=== PATIENT | female | born 1960 | race Caucasian/White ===

== ENCOUNTER 2018-03-15 01:31 | Outpatient (CLI) | payer OTHER, SELFPAY ==
[2018-03-15 11:40] LABS: Cholesterol 198 mg/dL (50-200); Glucose 89 mg/dL (70-100); HDL Cholesterol 96 mg/dL (40-60); LDL CHOLESTEROL 96 mg/dL (<100); Triglyceride 47 mg/dL (30-150)
== END 2018-03-15 01:51 ==
PROVIDERS: PCP Emergency Medicine; Visit Provider Emergency Medicine
DX: Z13.1 Encounter for screening for diabetes mellitus (principal); Z13.220 Encounter for screening for lipoid disorders
CPT/HCPCS: 36415; 80061; 82947; 83721

== ENCOUNTER 2018-11-22 09:51 | Outpatient (CLI) | payer OTHER, SELFPAY ==
[2018-11-23 10:29] LABS: Hepatitis C Ab w Rflx HCV PCR Negative (NEGAT)
[2018-11-23 10:42] LABS: HIV-1/2 Ag & Ab Screen Negative (NEGAT)
[2018-11-23 10:57] LABS: Syphilis Serology (RPR) Negative (Negative)
== END 2018-11-22 10:11 ==
PROVIDERS: PCP Emergency Medicine; Visit Provider Emergency Medicine
DX: Z00.00 Encounter for general adult medical examination without abnormal findings (principal); Z11.4 Encounter for screening for human immunodeficiency virus [HIV]; Z11.59 Encounter for screening for other viral diseases
CPT/HCPCS: 36415; 86803; 87389; 86592

== ENCOUNTER 2018-11-22 10:31 | Outpatient (REF) | payer OTHER, SELFPAY ==
[2018-11-23 14:18] LABS: Chlamydia Result Negative; GC Result Negative; Specimen Description VAGINAL
== END 2018-11-22 10:51 ==
LOC: LBN 10:31
PROVIDERS: PCP Emergency Medicine; Visit Provider Emergency Medicine
DX: Z20.2 Contact with and (suspected) exposure to infections with a predominantly sexual mode of transmission (principal); Z11.3 Encounter for screening for infections with a predominantly sexual mode of transmission
CPT/HCPCS: 87491; 87591

== ENCOUNTER 2019-12-20 02:58 | Outpatient (CLI) | payer OTHER, SELFPAY ==
--- NOTE | 2019-12-20 07:15 | DI.MAMMO_ITS ---
EXAM: MG MAMMO SCREENING CLINICAL HISTORY: screening,Z12.39 TECHNIQUE: Bilateral full field digital CC and MLO mammographic images were obtained with 3D tomosyn thesis and utilizing computer aided detection (CAD). COMPARISON: Available for comparison. FINDINGS: Masses/Architectural Distortion: None seen. Microcalcifications: No suspicious pleomorphic-type are seen. Skin Thickening/Nipple Retraction: None. IMPRESSION: 1. No significant interval change with no specific features of malignancy noted. 2. Unless there is more urgent need, screening mammography is recommended, as per [employer] guidelines. BI-RADS Category 1 - Negative Breast Density - Category C - Heterogeneously dense The mammogram demonstrates the patient's breast tissue is dense. Dense breast tissue is very common a nd is not abnormal but dense breast tissue can make it harder to find cancer on a mammogram. Also, de nse breast tissue may increase their breast cancer risk. This information about the result of [place] [facility] [place] was provided to the patient to raise their awareness. Use this report when you speak wi th the patient about their risks for breast cancer, which includes their family history. At that time , you may recommend for more screening tests (Ultrasound or MRI) as they might be useful based on the ir risk. A negative radiographic report should not delay biopsy if a dominant or clinically suspicious mass is present. Up to ten percent of cancers are not identified on mammography. A negative report may reinforce clinical impression. Adenosis and dense breasts may obscure an underlying neoplasm. False positive reports average 6 to 10%. Patient will receive a letter notifying them of these results.
== END 2019-12-20 03:18 ==
PROVIDERS: PCP Emergency Medicine; Visit Provider Emergency Medicine
DX: Z12.31 Encounter for screening mammogram for malignant neoplasm of breast (principal)
CPT/HCPCS: 77063; 77067

== ENCOUNTER 2020-01-10 15:20 | Outpatient (REF) | payer OTHER, SELFPAY ==
[2020-01-18 10:20] LABS: SARS-CoV-2 RNA Undetected (Undetected); SARS-CoV-2 Specimen Source Nasopharynx
== END 2020-01-10 15:40 ==
LOC: NCHCN 15:20
PROVIDERS: PCP Emergency Medicine; Visit Provider Family Medicine
DX: Z20.828 Contact with and (suspected) exposure to other viral communicable diseases (principal)
CPT/HCPCS: U0003

== ENCOUNTER 2020-01-21 06:20 | Day surgery (SDC) | payer OTHER, SELFPAY ==
[2020-01-21 06:13] VITALS: BP 116/80; PULSE 65; RESP 16; TEMP 36.3; O2SAT 98
--- NOTE | 2020-01-21 06:39 | W.COLOREPORT ---
Date of service: 01/21/20 Time of Service: :30 Colonoscopy Report Date of procedure: 01/21/20 Pre-op diagnosis general: Colon Cancer Screening Post-op diagnosis procedure note: same Procedure: Colonoscopy Surgeon: Anca Mcgraw Anesthesia proc note operative: other (General/ ASA 2/ Madelaine Peña, BRIAN) Estimated blood loss (mL): 0 Pathology: none sent Complications: None Disposition: same day Indications: Healthy 59 year old female here for a screening colonoscopy Risks, benefits and complications have been reveiwd. Complications include but are not limited to bleeding, pain, infection, perforation, sore throat, aspiration and adverse reaction to the medications. Questions were entertained and answered to her satisfcation and she wished to proceed. No guarantees were given or implied. Prep: Miralax/Dulcolax Procedure Start Time: :30 Procedure End Time: :50 Retraction Time: 13 minutes Findings: Normal colon Procedure Description: After informed consent was obtained the patient was taken to the procedure room and placed in a left decubitous position. Monitors were applied and a time out was done. The patients name, date of , procedure, allergies to medications and metal in their body was reviewed. The patient was then sedated. Once sedated and comfortable a rectal exam was done. External exam was normal. Internal exam revealed a normal sphincter tone and no palpable masses. The scope was then introduced and retro-flexed. No internal hemorrhoids, masses or polyps were identified on retro-flexion. The scope was then advanced to the cecum without difficulty. The ileocecal valve and appendiceal orifice were identified. The prep was good. The scope was then slowly retracted over 13 minutes back into the rectum. There were no polyps and no diverticula. The scope was removed and the patient was woken up and taken back to Same day surgery in stable condition. The patient tolerated the procedure well and there were no immediate complications. Follow up: The patient should follow up in 10 years unless they develop changes in bowel habits or other new gastrointestinal complaints.
--- NOTE | 2020-01-21 06:40 | W.PM.DSUDISC ---
Discharge Plan Disposition Patient Disposition: HOME Condition: Good Discharge Details Reason For Visit: Colon Cancer Screening Attending Provider: Anca Mcgraw Primary Care Provider: Rex Perera Home Meds and New Rx's Prescriptions: Continued lysine 500 mg tablet 500 mg PO DAILY RF: 0 acyclovir 400 mg tablet 400 mg PO BID Qty: 180 RF: 2 Premarin 0.45 mg tablet 0.45 mg PO DAILY Qty: 90 RF: 3 Discharge Instructions Additional Instructions: Findings: Normal colon Follow up: 10 years Please call if you develop: fevers >101.5 Nausea or Vomiting Abdominal pain that is not transient DAY SURGERY UNIT POST ENDOSCOPY INSTRUCTIONS 1. Because there will be medication in your system for the next 24 hours, you may feel a little sleepy. Your coordination will be affected. Therefore: a. Do not drive or operate dangerous equipment for 24 hours. b. Do not drink alcohol beverages for 24 hours (not even beer). c. Plan to go home and rest for the day. 2. Generally there are no restrictions on your activity after a day or so has gone by, but you may feel a bit fatigued for a few days. 3 After you arrive home you may have a light meal and return to a normal diet as you can tolerate it without feeling sick to your stomach. 4. After surgery, you may feel pain or discomfort. This should be only transient, but if it persists please contact your doctor. 5. If there are any questions regarding the findings of your procedure, please feel free to contact your doctor. 6. If you are unable to contact your doctor with a problem, contact the hospital at [phone]. 7. Continue all your regular medications unless directed otherwise. I understand the above instructions and have no questions. Signature of Patient or Responsible Adult Escort Date/Time Name of Responsible Adult Escort Signature of Nurse Date/Time Activity:: Activity as Tolerated Diet:: As Tolerated Discharge Orders Discharge Orders: Discharge Order (Routine); Ordered 01/21/20 Ordered By: Anca Mcgraw
[2020-01-21] MEDS: Lactated Ringers 1,000 ML 80 ML IV (06:51)
[2020-01-21 08:30] VITALS: BP 119/72; PULSE 63; RESP 16; TEMP 36.3; O2SAT 98
[2020-01-21 09:04] VITALS: BP 111/72; PULSE 68; RESP 16; TEMP 36.7; O2SAT 100
== END 2020-01-21 09:10 | disposition home or self-care (01) ==
PROVIDERS: PCP Emergency Medicine; Visit Provider Surgery
PROC: 0DJD8ZZ Inspection of Lower Intestinal Tract, Via Natural or Artificial Opening Endoscopic (ICD-10-PCS; CPT 45378; principal; 2020-01-21 07:30)
DX: Z12.11 Encounter for screening for malignant neoplasm of colon (principal)
CPT/HCPCS: 45378; J1100; J2001; J2405

== ENCOUNTER 2020-03-13 13:56 | Outpatient (REF) | payer SELFPAY ==
[2020-03-17 03:58] LABS: Patient Race White; SARS-CoV-2 RNA Undetected (Undetected); SARS-CoV-2 Specimen Source Nasal
== END 2020-03-13 14:16 ==
LOC: NCHCN 13:56
PROVIDERS: PCP Emergency Medicine; Visit Provider Family Medicine
DX: Z20.828 Contact with and (suspected) exposure to other viral communicable diseases (principal)
CPT/HCPCS: U0003

== ENCOUNTER 2020-04-23 00:58 | Outpatient (CLI) | payer OTHER, SELFPAY ==
--- NOTE | 2020-04-23 07:01 | DI.US_ITS ---
EXAM: US ABD PELV TRANSVAG NON-OB CLINICAL HISTORY: ABD PAIN/MID AND LOWER, PELVIC PAIN, R10.9, R10.2, R10.30 TECHNIQUE: Ultrasound of the abdomen, pelvic, both abdmonal and tranvaginal was performed using sta ndard protocol. COMPARISON: US PELVIS TRANSVAG from 01/31/2013 FINDINGS: LIVER: Normal. GALLBLADDER: No evidence of cholelithiasis. No evidence of wall thickening. No pericholecystic fluid identified. KIDNEYS: Kidneys are symmetric in size. No evidence of renal calculi. No evidence of hydronephrosis. No renal mass or cyst identified. BILIARY SYSTEM: Common bile duct measures < 7 mm. No intrahepatic biliary ductal dilation. VASQUEZ'S SIGN: Negative. PANCREAS: Normal where visualized. SPLEEN: Not enlarged. ABDOMINAL AORTA AND IVC: Visualized portions normal caliber. ASCITES: None seen. Abdominal wall: In the area of the patient's pain, there is a 5.9 centimeter fat containing hernia in ferior and towards the left of the umbilicus. There is no evidence of incarceration. UTERUS: Status post hysterectomy. OVARIES: Not seen CUL-DE-SAC: Free fluid: None. IMPRESSION: 1. Fatty containing hernia to the left of the umbilicus, otherwise normal sonographic appearance of t he upper abdomen. 2. Status post hysterectomy. No pelvic cyst or mass is visible. DATA REPOSITORY:
== END 2020-04-23 01:18 ==
PROVIDERS: PCP Emergency Medicine; Visit Provider Emergency Medicine
DX: R10.2 Pelvic and perineal pain (principal); R10.30 Lower abdominal pain, unspecified; K46.9 Unspecified abdominal hernia without obstruction or gangrene
CPT/HCPCS: 76700; 76830; 76856

== ENCOUNTER 2020-04-25 11:25 | Outpatient (CLI) | payer OTHER, SELFPAY ==
--- NOTE | 2020-04-25 14:45 | DI.CT_ITS ---
EXAM: CT ABDOMEN PELVIS W INDICATION: Lower abdominal pain R10.32 LLQ PAIN. COMPARISON: No exams were available for comparison TECHNIQUE: FINDINGS: CT examination of the abdomen and pelvis was performed with a bolus infusion of 100 cc of Omnipaque 3 50. Images obtained through the lung bases are unremarkable except for a calcified right lower lobe l esion consistent with granuloma.. The liver is unremarkable appearance. Gallbladder and bile ducts are CT normal. Pancreas appears normal. Spleen is unremarkable in appearance. Adrenals and kidneys are unremarkable except for an incidental small right renal cortical cyst.. Uri nary bladder unremarkable. Abdominal aorta is of normal diameter and no major vascular abnormality is seen. No abdominal wall hernia. No abdominal or pelvic adenopathy. Uterus is atrophic or absent, ovaries nonvisualized.. Appendix is not specifically visualized but there is no evidence of appendicitis or diverticulitis. IMPRESSION: Negative CT examination of the abdomen and pelvis. RADIATION DOSE DELIVERED: 721.03mGy.cm Total DLP 721.03mGy.cm Total DLP
[2020-04-25] MEDS: Omnipaque 350 MG/ML 50 ML BTL PO (15:49)
[2020-04-25] MEDS: Breeza Beverage 473 ML BTL PO ×2 (15:49→15:50)
[2020-04-25] MEDS: Omnipaque 350 MG/ML 100 ML BTL IJ (16:34)
[2020-04-25] MEDS: Normal Saline - Diluent 50 ML VIAL IV (16:35)
[2020-04-25] MEDS: Normal Saline Flush 10 ML SYR IVP (16:36)
--- NOTE | 2020-04-25 16:46 | DI.VRAD_ITS ---
PROCEDURE INFORMATION: Exam: CT Abdomen And Pelvis With Contrast Exam date and time: 04/25/2020 2:49 PM Age: 60 years old Clinical indication: Other: Lower abd pain, llq pain TECHNIQUE: Imaging protocol: Computed tomography of the abdomen and pelvis with intravenous contrast. Radiation optimization: All CT scans at this facility use at least one of these dose optimization techniques: automated exposure control; mA and/or kV adjustment per patient size (includes targeted exams where dose is matched to clinical indication); or iterative reconstruction. Contrast material: OMNIPAQUE 350; Contrast volume: 100 ml; Contrast route: INTRAVENOUS (IV); COMPARISON: US ABD PELV TRANSVAG NON-OB 04/23/2020 8:08 AM FINDINGS: Lungs: Scarring at the left pulmonary base. Liver: Normal. No mass. Gallbladder and bile ducts: Wall thickening up to 3 mm in the gallbladder fundus. Underlying mass is not excluded. Pancreas: Normal. No ductal dilation. Spleen: Normal. No splenomegaly. Adrenals: Normal. No mass. Kidneys and ureters: Right renal cysts measure up to 1.4 cm. Stomach and bowel: Unremarkable. No obstruction. No mucosal thickening. Appendix: Unable to identify the appendix. Intraperitoneal space: Unremarkable. No free air. No significant fluid collection. Vasculature: Unremarkable. No abdominal aortic aneurysm. Lymph nodes: Unremarkable. No enlarged lymph nodes. Urinary bladder: Unremarkable as visualized. Reproductive: Hysterectomy. Bones/joints: Unremarkable. No acute fracture. Soft tissues: Unremarkable. IMPRESSION: 1. Right renal cysts measure up to 1.4 cm. 2. Wall thickening up to 3 mm in the gallbladder fundus. Underlying mass is not excluded. Dictated and Authenticated by: Ted Dangelo MD. Ordering:GASPER Conway MD
== END 2020-04-25 11:45 ==
PROVIDERS: PCP Emergency Medicine; Visit Provider Surgery
DX: N28.1 Cyst of kidney, acquired (principal); R93.2 Abnormal findings on diagnostic imaging of liver and biliary tract
CPT/HCPCS: 74177; J3490; Q9967

== ENCOUNTER 2020-04-30 08:31 | Outpatient (REF) | payer SELFPAY ==
[2020-05-02 14:59] LABS: SARS-CoV-2 RNA Source Nasal/Nares
[2020-05-02 15:00] LABS: SARS-CoV-2 RNA Not Detected (NotDetected)
== END 2020-04-30 08:51 ==
LOC: NCHCN 08:31
PROVIDERS: PCP Emergency Medicine; Visit Provider Family Medicine
DX: Z20.828 Contact with and (suspected) exposure to other viral communicable diseases (principal)
CPT/HCPCS: U0003

== ENCOUNTER 2020-06-20 03:24 | Outpatient (CLI) | payer SELFPAY ==
[2020-06-23 12:11] LABS: COVID-19 RT-PCR Result NEGATIVE (Negative)
== END 2020-06-20 03:44 ==
PROVIDERS: PCP Emergency Medicine; Visit Provider Dentist General Practice
DX: Z11.59 Encounter for screening for other viral diseases (principal)
CPT/HCPCS: U0003

== ENCOUNTER 2020-07-11 03:46 | Outpatient (CLI) | payer OTHER, SELFPAY ==
[2020-07-12 15:30] LABS: COVID-19 RT-PCR UVMMC Result Negative (Negative)
== END 2020-07-11 04:06 ==
PROVIDERS: PCP Emergency Medicine; Visit Provider Dentist General Practice
DX: Z11.52 Encounter for screening for COVID-19 (principal)
CPT/HCPCS: U0003

== ENCOUNTER 2020-08-15 19:08 | Outpatient (CLI) | payer OTHER, SELFPAY ==
[2020-08-16 11:47] LABS: COVID-19 RT-PCR UVMMC Result Negative (Negative)
== END 2020-08-15 19:09 | disposition home or self-care (01) ==
LOC: LBO 08-20 19:09
PROVIDERS: PCP Emergency Medicine; Visit Provider Dentist General Practice
DX: Z20.822 Contact with and (suspected) exposure to COVID-19 (principal)
CPT/HCPCS: U0003

== ENCOUNTER 2020-09-12 03:14 | Outpatient (CLI) | payer OTHER, SELFPAY ==
[2020-09-13 18:03] LABS: COVID-19 RT-PCR UVMMC Result Negative (Negative)
== END 2020-09-12 03:15 | disposition home or self-care (01) ==
LOC: LBO 03:14
PROVIDERS: PCP Emergency Medicine; Visit Provider Dentist General Practice
DX: Z20.822 Contact with and (suspected) exposure to COVID-19 (principal)
CPT/HCPCS: U0003

== ENCOUNTER 2020-10-01 02:58 | Outpatient (CLI) | payer OTHER, SELFPAY ==
[2020-10-02 02:05] LABS: COVID-19 RT-PCR UVMMC Result Negative (Negative)
== END 2020-10-01 02:59 | disposition home or self-care (01) ==
PROVIDERS: PCP Emergency Medicine; Visit Provider Dentist General Practice
DX: Z20.822 Contact with and (suspected) exposure to COVID-19 (principal)
CPT/HCPCS: U0003

== ENCOUNTER 2020-11-07 04:10 | Outpatient (CLI) | payer OTHER, SELFPAY ==
[2020-11-08 14:28] LABS: COVID-19 RT-PCR UVMMC Result Negative (Negative)
== END 2020-11-07 04:11 | disposition home or self-care (01) ==
PROVIDERS: PCP Emergency Medicine; Visit Provider Dentist General Practice
DX: Z20.822 Contact with and (suspected) exposure to COVID-19 (principal)
CPT/HCPCS: U0003

== ENCOUNTER 2021-01-02 01:42 | Outpatient (CLI) | payer OTHER, SELFPAY ==
[2021-01-03 14:11] LABS: COVID-19 RT-PCR UVMMC Result Negative (Negative)
== END 2021-01-02 01:43 | disposition home or self-care (01) ==
LOC: LBO 01:42
PROVIDERS: PCP Emergency Medicine; Visit Provider Dentist General Practice
DX: Z20.822 Contact with and (suspected) exposure to COVID-19 (principal)
CPT/HCPCS: U0003

== ENCOUNTER 2021-03-13 03:28 | Outpatient (CLI) | payer OTHER, SELFPAY ==
[2021-03-14 00:09] LABS: COVID-19 RT-PCR UVMMC Result Negative (Negative)
== END 2021-03-13 03:29 | disposition home or self-care (01) ==
PROVIDERS: PCP Emergency Medicine; Visit Provider Dentist General Practice
DX: Z20.822 Contact with and (suspected) exposure to COVID-19 (principal)
CPT/HCPCS: U0003

== ENCOUNTER 2021-04-20 22:38 | Outpatient (REF) | payer OTHER, SELFPAY ==
[2021-04-20 21:56] LABS: Bilirubin Negative (Negative); Blood Small (Negative); Clarity Cloudy (Clear); Glucose Negative (Negative); Ketones Negative (Negative); Leukocyte Esterase Small (Negative); Nitrite Negative (Negative); Specific Gravity 1.025 (1.005-1.025); Urobilinogen 0.2 EU/dL (Up TO 0.2); pH 5.5 (5-8)
[2021-04-20 22:18] LABS: Bacteria Few HPF (Negative); C & S Indicated? Yes; WBC >50 HPF (0-5)
== END 2021-04-20 22:39 | disposition home or self-care (01) ==
LOC: NCHCN 22:38
PROVIDERS: PCP Emergency Medicine; Visit Provider Nurse Practitioner Family
DX: N39.0 Urinary tract infection, site not specified (principal)
CPT/HCPCS: 87077; 81003; 81015; 87086; 87186

== ENCOUNTER 2021-05-01 01:22 | Outpatient (CLI) | payer OTHER, SELFPAY ==
[2021-05-01 21:25] LABS: COVID-19 RT-PCR UVMMC Result Negative (Negative)
== END 2021-05-01 01:23 | disposition home or self-care (01) ==
PROVIDERS: PCP Emergency Medicine; Visit Provider Dentist General Practice
DX: Z20.822 Contact with and (suspected) exposure to COVID-19 (principal)
CPT/HCPCS: U0003

== ENCOUNTER 2021-07-17 03:45 | Outpatient (CLI) | payer OTHER, SELFPAY ==
[2021-07-17 19:17] LABS: COVID-19 RT-PCR UVMMC Result Negative (Negative)
== END 2021-07-17 03:46 | disposition home or self-care (01) ==
LOC: LBO 03:45
PROVIDERS: PCP Emergency Medicine; Visit Provider Dentist General Practice
DX: Z20.822 Contact with and (suspected) exposure to COVID-19 (principal)
CPT/HCPCS: U0003

== ENCOUNTER 2021-07-24 10:16 | Outpatient (CLI) | payer OTHER, SELFPAY ==
[2021-07-24 21:12] LABS: COVID-19 RT-PCR UVMMC Result Negative (Negative)
== END 2021-07-24 10:17 | disposition home or self-care (01) ==
PROVIDERS: PCP Emergency Medicine; Visit Provider Dentist General Practice
DX: Z20.822 Contact with and (suspected) exposure to COVID-19 (principal)
CPT/HCPCS: U0003

== ENCOUNTER 2021-10-01 21:16 | Outpatient (REF) | payer OTHER, SELFPAY | END 2021-10-01 21:17 | disposition home or self-care (01) | LOC: LBN 21:16 | PROVIDERS: PCP Family Medicine; Visit Provider Physician Assistant | DX: N39.0 Urinary tract infection, site not specified (principal) | CPT/HCPCS: 87077; 87086; 87186 ==

== ENCOUNTER 2025-06-04 06:01 | Day surgery (SDC) | payer OTHER, SELFPAY ==
[2025-06-04 06:20] VITALS: BP 125/75; PULSE 60; RESP 14; TEMP 36.3; O2SAT 100
[2025-06-04] MEDS: Cephalexin 500 MG CAP 1000 MG PO (06:33)
--- NOTE | 2025-06-04 07:02 | W.PM.DSUDISC ---
Date of service: 06/04/25 Discharge Plan Disposition Patient Disposition: Home Condition: Good Discharge Details Reason For Visit: Left carpal tunnel syndrome Attending Provider: Tenzin Glez Primary Care Provider: April Linares Home Meds and New Rx's Prescriptions: New hydrocodone-acetaminophen 5-325 mg tablet 1 tab PO Q6H PRN (Reason: severe pain) Qty: 4 0RF Rx Instructions: Take one tablet up to every 6 hours as needed for severe postoperative pain acetaminophen 500 mg tablet 500 mg PO Q6H PRN (Reason: pain) Qty: 60 2RF ibuprofen 600 mg tablet 600 mg PO TID PRN (Reason: pain) Qty: 60 0RF Continued Multiple Vitamin, Womens Tablet PO DAILY Premarin 0.45 mg tablet 0.45 mg PO DAILY Qty: 90 3RF acyclovir 400 mg tablet 400 mg PO BID Qty: 180 4RF Rx Instructions: suppressive therapy to be taken twice daily Discharge Instructions Stand Alone Forms: Amaris Messina Tunnel Release, Portal Information Activity:: Elevate Remove Dressings/Wound Care:: 48 hours Shower/Bathe:: 48 hours Diet:: As Tolerated Discharge Orders Discharge Orders: Discharge Order (Routine); Ordered 06/04/25 Ordered By: Yoly Sweeney
[2025-06-04] MEDS: Lidocaine 1% Pres-Free W/EPI 1/200,000 10 ML VIAL (07:38)
[2025-06-04] MEDS: Sodium Bicarbonate 50 MEQ/50 ML VIAL (07:39)
--- NOTE | 2025-06-04 07:46 | ROE_ITS ---
Operative Note Operative Note PRE-OP DIAGNOSIS: Left Carpal Tunnel Syndrome POST-OP DIAGNOSIS: same PROCEDURE: Left Endoscopic Carpal Tunnel Release SURGEON: Tenzin Glez ANESTHESIA TYPE: Local By Surgeon Refer to Anesthesia Record ESTIMATED BLOOD LOSS: 0 PATHOLOGY: none sent TOURNIQUET TIME: 5 COMPLICATIONS: None Patient was transported to: same day Patient's condition: stable Indications: I have seen Keily in clinic for symptoms of carpal tunnel syndrome. The numbness, tingling, and pain limited function. Clinical exam findings with nerve conduction tests confirmed the diagnosis of carpal tunnel syndrome. Nonoperative measures such as bracing, time, activity modifications had been tried but disability and pain persisted. I discussed carpal tunnel release with the patient. I reviewed the risks of the procedure to include, but not limited to, bleeding, infection, pain, stiffness, incomplete release, damage to nerves or vessels, persistent numbness, recurrence. Despite these risks, the patient elected to proceed. Findings: There was tightened carpal tunnel. This was dilated and released successfully with the endoscopic with increased space within the tunnel. The antebrachial fascia was released proximally freeing the median nerve at the wrist. Procedure Description: Keily was greeted in the preoperative holding area where the correct side was identified and marked. The consent was reviewed with the patient and signed. The history and physical was updated. All questions were answered. She was taken back to the operating room. The patient was placed into the supine position on the operating room table with the left arm on an arm board. A nonsterile tourniquet was placed high onto the arm. All bony prominences were well padded. Prophylactic antibiotics in the form of Cephalexin were administered in DSU. The left arm was then prepped with Chloraprep and draped in a standard fashion with stockinette and extremity drape. A timeout to confirm correct identity, side and site, procedure, allergies, anesthesia, and medical concerns was performed. The surgical site was marked in the volar wrist creases in line with the radial border of the fourth ray. This area was anesthetized with approximately 10cc of 1% Lidocaine with Epinephrine, buffered with Sodium Bicarbonate. The limb was then exsanguinated with an Esmarch. The skin was incised with a 15 blade, approximately 1cm. The skin only was cut and the deeper tissue was dissected bluntly with a tenotomy scissor, avoiding passing nerve and venous structures. The fascia was penetrated and opened bluntly. A two-prong skin hook was placed under this proximal fascial edge. A series of hamate finders were used to identify and dilate the carpal tunnel. Synovial elevator was used to free synovial attachments to the underside of the transverse carpal ligament. My thumb was kept in the palm to kassandra the distal extent of the carpal tunnel and correctly position the hand. The Microaire endoscope was inserted without difficulty and without resistance. Excellent visualization showed horizontally running fibers of the transverse carpal ligament (TCL). The distal extent of the TCL was visualized and the end of the scope palpated with the thumb. The blade was elevated and withdrawn from distal to proximal. The TCL was split into two flaps. The endoscope was reinserted to confirm complete release and any remnant ligament was incised. The scope was withdrawn and the p roximal aspect of the carpal tunnel was grossly inspected and appeared release with the median nerve visible. The antebrachial fascia at the level of the wrist was then freed from the overlying skin and then the underlying median nerve with blunt dissection. This was transected longitudinally for about 3cm proximal to the wrist incision. The wound was then irrigated with easy flow of irrigant distally and proximally. The incision was closed with a single 4-0 Nylon suture. The wound was dressed with Xeroform, Gauze, Kerlix and Hari. The tourniquet was deflated with the initial dressing and held with some pressure. Blood flow returned easily to all digits with capillary refill less than 2 seconds. The patient tolerated the procedure well and was returned to the Same Day Surgery area in a stable condition suffering no known complication. Date of Procedure: 06/04/25
[2025-06-04 07:56] VITALS: BP 139/93; PULSE 56; RESP 14; TEMP 36.1; O2SAT 100
== END 2025-06-04 07:57 | disposition home or self-care (01) ==
PROVIDERS: PCP Internal Medicine; Visit Provider Student in an Organized Health Care Education/Training Program
PROC: 01N54ZZ Release Median Nerve, Percutaneous Endoscopic Approach (ICD-10-PCS; CPT 29848; principal; 2025-06-04 07:30)
DX: G56.02 Carpal tunnel syndrome, left upper limb (principal)
CPT/HCPCS: 29848; J2004

== ENCOUNTER 2025-06-11 06:00 | Day surgery (SDC) | payer OTHER, SELFPAY ==
[2025-06-11 06:25] VITALS: BP 134/60; PULSE 67; RESP 16; TEMP 36.5; O2SAT 100
[2025-06-11] MEDS: Cephalexin 500 MG CAP 1000 MG PO (06:57)
--- NOTE | 2025-06-11 07:00 | W.PM.DSUDISC ---
Date of service: 06/11/25 Discharge Plan Disposition Patient Disposition: Home Condition: Good Discharge Details Reason For Visit: Right carpal tunnel syndrome Attending Provider: Tenzin Glez Primary Care Provider: April Linares Home Meds and New Rx's Prescriptions: New hydrocodone-acetaminophen 5-325 mg tablet 1 tab PO Q6H PRN (Reason: severe pain) Qty: 4 0RF Rx Instructions: Take one tablet up to every 6 hours as needed for severe postoperative pain Continued Multiple Vitamin, Womens Tablet PO DAILY conjugated estrogens [Premarin] 0.45 mg tablet 0.45 mg PO DAILY Qty: 90 3RF acyclovir 400 mg tablet 400 mg PO BID Qty: 180 4RF Rx Instructions: suppressive therapy to be taken twice daily acetaminophen 500 mg tablet 500 mg PO Q6H PRN (Reason: pain) Qty: 60 2RF ibuprofen 600 mg tablet 600 mg PO TID PRN (Reason: pain) Qty: 60 0RF Discontinued hydrocodone-acetaminophen 5-325 mg tablet 1 tab PO Q6H PRN (Reason: severe pain) Qty: 4 0RF Rx Instructions: Take one tablet up to every 6 hours as needed for severe postoperative pain Discharge Instructions Stand Alone Forms: Amaris Messina Tunnel Release, Portal Information Activity:: Elevate Remove Dressings/Wound Care:: 48 hours Shower/Bathe:: 48 hours Diet:: As Tolerated Discharge Orders Discharge Orders: Discharge Order (Routine); Ordered 06/11/25 Ordered By: Yoly Sweeney
--- NOTE | 2025-06-11 07:27 | W.PM.OP ---
Operative Note Operative Note PRE-OP DIAGNOSIS: Right Carpal Tunnel Syndrome POST-OP DIAGNOSIS: same PROCEDURE: Right Endoscopic Carpal Tunnel Release SURGEON: Tenzin Glez ANESTHESIA TYPE: Local By Surgeon Refer to Anesthesia Record ESTIMATED BLOOD LOSS: 0 PATHOLOGY: none sent TOURNIQUET TIME: 3 COMPLICATIONS: None Patient was transported to: same day Patient's condition: stable Indications: I have seen Keily in clinic for symptoms of carpal tunnel syndrome. The numbness, tingling, and pain limited function. Clinical exam findings confirmed the diagnosis of carpal tunnel syndrome. Nonoperative measures such as bracing, time, activity modifications had been tried but disability and pain persisted. She had successful carpal tunnel lease on the left side with significant improvement in preoperative symptoms. Once again, I reviewed the risks of the procedure to include, but not limited to, bleeding, infection, pain, stiffness, incomplete release, damage to nerves or vessels, persistent numbness, recurrence. Despite these risks, she elected to proceed. Findings: There was tightened carpal tunnel. This was dilated and released successfully with the endoscopic with increased space within the tunnel. The antebrachial fascia was released proximally freeing the median nerve at the wrist. Procedure Description: Keily was greeted in the preoperative holding area where the correct side was identified and marked. The consent was reviewed with the patient and signed. The history and physical was updated. All questions were answered. She was taken back to the operating room. The patient was placed into the supine position on the operating room table with the right arm on an arm board. A nonsterile tourniquet was placed high onto the arm. All bony prominences were well padded. Prophylactic antibiotics in the form of Cephalexin were administered in DSU. The right arm was then prepped with Chloraprep and draped in a standard fashion with stockinette and extremity drape. A timeout to confirm correct identity, side and site, procedure, allergies, anesthesia, and medical concerns was performed. The surgical site was marked in the volar wrist creases in line with the radial border of the fourth ray. This area was anesthetized with approximately 10cc of 1% Lidocaine with Epinephrine, buffered with Sodium Bicarbonate. The limb was then exsanguinated with an Esmarch. The skin was incised with a 15 blade, approximately 1cm. The skin only was cut and the deeper tissue was dissected bluntly with a tenotomy scissor, avoiding passing nerve and venous structures. The fascia was penetrated and opened bluntly. A two-prong skin hook was placed under this proximal fascial edge. A series of hamate finders were used to identify and dilate the carpal tunnel. Synovial elevator was used to free synovial attachments to the underside of the transverse carpal ligament. My thumb was kept in the palm to kassandra the distal extent of the carpal tunnel and correctly position the hand. The Microaire endoscope was inserted without difficulty and without resistance. Excellent visualization showed horizontally running fibers of the transverse carpal ligament (TCL). The distal extent of the TCL was visualized and the end of the scope palpated with the thumb. The blade was elevated and withdrawn from distal to proximal. The TCL was split into two flaps. The endoscope was reinserted to confirm complete release and any remnant ligament was incised. The scope was withdrawn and the proximal aspect of the carpal tunnel was grossly inspected and appeared release with the median nerve visible. The antebrachial fascia at the level of the wrist was then freed from the overlying skin and then the underlying median nerve with blunt dissection. This was transected longitudinally for about 3cm proximal to the wrist incision. The wound was then irrigated with easy flow of irrigant distally and proximally. The incision was closed with a single 4-0 Nylon suture. The wound was dressed with Xeroform, Gauze, Kerlix and Hari. The tourniquet was deflated with the initial dressing and held with some pressure. Blood flow returned easily to all digits with capillary refill less than 2 seconds. The patient tolerated the procedure well and was returned to the Same Day Surgery area in a stable condition suffering no known complication. Date of Procedure: 06/11/25
[2025-06-11 07:46] VITALS: BP 138/78; PULSE 67; RESP 16; TEMP 36.3; O2SAT 99
== END 2025-06-11 08:04 | disposition home or self-care (01) ==
PROVIDERS: PCP Internal Medicine; Visit Provider Student in an Organized Health Care Education/Training Program
PROC: 01N54ZZ Release Median Nerve, Percutaneous Endoscopic Approach (ICD-10-PCS; CPT 29848; principal; 2025-06-11 07:30)
DX: G56.01 Carpal tunnel syndrome, right upper limb (principal)
CPT/HCPCS: 29848; J2004